=== PATIENT | male | born 1955 | race Caucasian/White ===

== ENCOUNTER 2020-02-23 20:48 | Emergency (ER) | payer OTHER ==
[~2020-02-23] VITALS: Ht 175.3 cm; Wt 99.8 kg
[2020-02-23 21:00] VITALS: BP 143/69
--- NOTE | 2020-02-23 21:00 | NUR ---
ARRIVAL PT ARRIVED AMBULATORY TO ER 6 WITH C/O FEVER AND COUGHING. PT STATES HAS "BEEN FEELING BAD", HAVE FEVER, COUGHING, AND HAVE HEADACHE. PT TESTED POSITIVE FOR COVID BEFORE . PT WAS TESTED AT PCP OFFICE.
--- NOTE | 2020-02-23 22:00 | DIREP ---
PROCEDURE:CHEST 2 VIEWS COMPARISON:[facility], CR, CHEST 2 VIEW, 10/23/2013, 08:10 AM. INDICATIONS:cough FINDINGS: LUNGS/PLEURA:Bilateral diffuse ground-glass infiltrates seen worrisome for viral pneumonia, such as Covid 19 pneumonia. Elevated right hemidiaphragm. No obvious CHF or effusions are seen, although portions of the vascularity obscured by the overlying infiltrates. VASCULATURE:Normal. Unremarkable pulmonary vasculature. CARDIAC:Normal. No cardiac silhouette abnormality or cardiomegaly. MEDIASTINUM:Normal. No visible mass or adenopathy. BONES:Normal. No fracture or visible bony lesion. OTHER:Negative. CONCLUSION:Diffuse bilateral ill-defined ground-glass infiltrates worrisome for Covid 19 pneumonia. Dictated by: Alexander Bernabe MD on 02/23/2020 at 09:58 PM
[2020-02-23 22:04] LABS: BASOPHIL % 0.4 % (0.0-0.2); EOSINOPHIL # 0.1 10^3/uL (0.0-0.2); EOSINOPHIL % 1.3 % (0.0-5.0); LYMPHOCYTES % 22.5 % (24.0-44.0); MEAN CORP HGB 32.1 pg (26-34); MONOCYTES # 0.1 10^3/uL (0.3-0.8); MONOCYTES % 2.6 % (5.0-12.0); NEUTROPHIL # 3.9 10^3/uL (1.8-7.7); NEUTROPHILS % 72.8 % (41.0-85.0); PLATELET COUNT 163 10^3/uL (150-400); RED CELL DISTRIBUTION WIDTH 12.5 % (11.5-14.5)
[2020-02-23 22:05] VITALS: BP 146/71
[2020-02-23 22:19] LABS: CALCIUM 8.7 mg/dL (8.4-10.5); CARBON DIOXIDE 22.3 mmol/L (20.0-32)
[2020-02-23 22:35] LABS: ABG PCO2 33.4 mmHg (35.0-45.0); ABG PH 7.449 (7.350-7.450); BE(B) -0.5 mmol/L (-2.0-2.0); HCO3act 22.6 mmol/L (22.0-26.0); pO2 58.4 mmHg (80.0-100.0)
[2020-02-23 22:47] VITALS: BP 152/75
[2020-02-23 23:14] VITALS: BP 148/70
[2020-02-23] MEDS ORDERED: DECADRON ONE (23:31)
[2020-02-23] MEDS ORDERED: DECADRON IV STA (23:33)
--- NOTE | 2020-02-23 23:33 | ER.PDOC ---
General Chief Complaint: Cough/Congestion Stated Complaint: FEVER,LOW O2 Time seen by MD: 23:26 Source: patient Exam Limitations: no limitations History of Present Illness Initial Comments Patient diagnosed with COVID-19 about 10 days ago comes in because of low Oxygen in the 80s at home. He continues to cough and sometimes with fever. Patient has completed taking two rounds of Z pack and a Rocephin shot given by his PCP. Severity: moderate Activities at Onset: rest Prior Episodes/Possible Cause: no prior episodes Associated Symptoms: cough Allergies: Coded Allergies: No Known Allergies (Unverified , 02/23/20) Past Medical History Medical History: high cholesterol, other Surgical History: no surgical history Social History Alcohol Use: none Drug Use: none Review of Systems Constitutional: no symptoms reported Respiratory: see HPI Cardiovascular: no symptoms reported Gastrointestinal: no symptoms reported Genitourinary: no symptoms reported Musculoskeletal: no symptoms reported Skin: no symptoms reported All Other Systems: Reviewed and Negative Physical Exam General Appearance: No Apparent Distress, WD/WN, Obese HEENT: PERRL/EOMI Neck: Non-Tender, Full Range of Motion, Supple, Normal Inspection Respiratory: chest non-tender, no respiratory distress, no accessory muscle use, rhonchi Cardiovascular: Normal Peripheral Pulses, Regular Rate, Rhythm, No Edema, No Gallop, No JVD, No Murmur Gastrointestinal: Normal Bowel Sounds, No Organomegaly, No Pulsatile Mass, Non Tender, Soft Extremities: Normal Range of Motion, Non-Tender, Normal Inspection, No Pedal Edema, No Calf Tenderness, Normal Capillary Refill 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, No Motor/Sensory Deficits, Alert, Normal Mood/Affect, Oriented x 3 Skin: Normal Color, Warm/Dry Lymphatic: No Adenopathy Results/Orders Results/Orders Orders - RONI BROWN MD Cbc With Auto Diff (02/23/20 21:10) Comprehensive Metabolic Panel (02/23/20 21:10) Blood Culture (02/23/20 21:10) Xr Chest 2v (02/23/20 21:10) Ferritin(Ml) (02/23/20 22:08) Procalcitonin (02/23/20 22:08) C-Reactive Protein (02/23/20 22:08) D-Dimer (02/23/20 22:08) Creatine Kinase (02/23/20 22:08) Creatine Kinase Mb (02/23/20 22:08) Troponin I (02/23/20 22:08) Probnp B-Type Muffler Tender (02/23/20 22:08) PT (02/23/20 22:08) Partial Thromboplastin Time. (02/23/20 22:08) Ekg-Routine (02/23/20 22:08) Arterial Blood Gas (02/23/20 22:08) Lactate Dehydrogenase (02/23/20 22:08) Vital Signs Date Time Temp Pulse Resp B/P (MAP) Pulse Ox O2 Delivery O2 Flow Rate FiO2 02/23/20 23:14 88 20 148/70 (96) 92 Room Air 02/23/20 22:47 85 20 152/75 (100) 92 Room Air 02/23/20 22:05 98.1 82 18 146/71 (96) 91 Room Air 02/23/20 21:00 98.1 85 18 93 02/23/20 21:00 98.1 85 18 02/23/20 21:00 98.1 85 18 143/69 (93) 93 Room Air Laboratory Tests Test 02/23/20 21:40 02/23/20 22:30 White Blood Count 5.3 10^3/uL (4.5-11.0) Red Blood Count 4.55 10^6/uL (4.50-5.90) Hemoglobin 14.6 g/dL (13.9-16.3) Hematocrit 42.4 % (37.0-53.0) Mean Corpuscular Volume 93.2 fL (78-100) Mean Corpuscular Hemoglobin 32.1 pg (26-34) Mean Corpuscular Hemoglobin Concent 34.4 g/dL (33-36.5) Red Cell Distribution Width 12.5 % (11.5-14.5) Platelet Count 163 10^3/uL (150-400) Mean Platelet Volume 9.9 fL (7.8-11.0) Neutrophils (%) (Auto) 72.8 % (41.0-85.0) Lymphocytes (%) (Auto) 22.5 % (24.0-44.0) L Monocytes (%) (Auto) 2.6 % (5.0-12.0) L Neutrophils # (Auto) 3.9 10^3/uL (1.8-7.7) Lymphocytes # (Auto) 1.20 10^3/uL1 (1.0-4.8) Monocytes # (Auto) 0.1 10^3/uL (0.3-0.8) L Absolute Immature Granulocyte (auto 0.02 10^3 u/L (0-2) Absolute Eosinophils (auto) 0.1 10^3/uL (0.0-0.2) Immature Granulocytes % 0.40 % (0.00-0.50) Eosinophils % 1.3 % (0.0-5.0) Basophils % 0.4 % (0.0-0.2) H Basophils # 0.0 10^3/uL (0.0-0.1) Prothrombin Time 10.0 SEC (9.3-11.3) Prothrombin Time INR (Non-Therap) 1.0 Activated Partial Thromboplast Time 29.5 SEC (24.67-30.72) D-Dimer 0.97 mg/L (0.19-0.49) *H Sodium Level 131 mmol/L (132-145) L Potassium Level 4.0 mmol/L (3.6-5.2) Chloride Level 97.0 mmol/L (96-109) Carbon Dioxide Level 22.3 mmol/L (20.0-32) Anion Gap 15.7 Blood Urea Nitrogen 13 mg/dL (7-18) Creatinine 1.77 mg/dL (0.59-1.40) H Estimated GFR () 47.4 (>/=60) Est GFR (CKD-EPI)(Non-Afr Cambodian) 39.2 (>/=60) BUN/Creatinine Ratio 7.0 Glucose Level 102 mg/dL (70-110) Calcium Level 8.7 mg/dL (8.4-10.5) Total Bilirubin 0.5 mg/dL (0.2-1.0) Aspartate Amino Transferase (AST) 34 U/L (0-35) Alanine Aminotransferase (ALT) 34 U/L (12-78) Alkaline Phosphatase 58 U/L (50-136) Total Protein 6.2 g/dL (6.4-8.2) L Albumin 3.1 g/dL (3.4-5.0) L Globulin 3.1 Albumin/Globulin Ratio 1.000 Blood Gas Sample Site RB Blood pH 7.449 (7.350-7.450) Blood Gas PCO2 33.4 mmHg (35.0-45.0) L Blood Gas PO2 58.4 mmHg (80.0-100.0) L Blood Gas HCO3 22.6 mmol/L (22.0-26.0) Blood Gas Base Excess -0.5 mmol/L (-2.0-2.0) Arterial Blood Oxygen Saturation 90.3 % (94.0-97.00) L Deoxyhemoglobin 9.6 % (0.0-5.0) H Carboxyhemoglobin 0.5 % (0.0-3.9) Methemoglobin 0.1 % (0.00-5.0) Total Hemoglobin 15.5 % (12.0-17.8) Total Oxygen Concentration 19.5 % (13.5-17.5) H Oxygen Delivery Method ROOM AIR FiO2 21 % (20-101) Total Carbon Dioxide 23.7 mmol/L (23-27) Progress Progress CXR: Diffuse bilateral ill-defined ground-glass infiltrates worrisome for Covid 19 pneumonia. I spoke with Dr. Dior on observing patient but he declined on basis that patient does not meet criteria since Oxygen is hanging at 91%. Discussed with patient and he is okay going home. EKG/XRAY/CT/US EKG: NSR, no ST T wave changes EKG Comments: HR 77, normal axis ER DEPART Departure Time of Disposition: 23:39 Disposition: 01 HOME, SELF-CARE Impression: Primary Impression: Pneumonia due to COVID-19 virus Condition: Stable Referrals: CARLIE BARRAZA (PCP) PRIMARY CARE PROVIDER Additional Instructions: Dexamethasone Mucinex DM OTC as directed Vit C, D and Zinc OTC as directed F/U with PCP in 2-3 days Return to ED if worsening or concerns. Duration or Time Spent with Pa: 60 min RONI BROWN MD Feb 23, 2020 23:33
--- NOTE | 2020-02-24 00:59 | PCM.EKG ---
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
== END 2020-02-23 23:55 | disposition home or self-care (01) ==
LOC: ER 20:48
DX: U07.1 COVID-19 (principal); J12.89 Other viral pneumonia; E78.00 Pure hypercholesterolemia, unspecified; R79.1 Abnormal coagulation profile
CPT/HCPCS: 36415; 71046; 80053; 82550; 82553; 82803; 83615; 83880; 84145; 84484; 85025; 85379; 85610; 85730; 86140; 87040 ×2; 93005; 96374; 99285; J1100

== ENCOUNTER → 2022-01-22 | Outpatient (CLI) | payer OTHER ==
--- NOTE | 2022-01-22 10:58 | DIREP ---
PROCEDURE:US ABDOMEN LIMITED COMPARISON:None. INDICATIONS:R10.11 RUQ PAIN TECHNIQUE:High resolution sonographic examination was performed of the abdomen. FINDINGS: LIVER:Increased echotexture. No focal lesion identified. BILIARY:Gallbladder sludge. No and shadowing stones, wall thickening, pericholecystic fluid or biliary duct dilatation, CBD 0.6 cm. PANCREAS:Nonvisualized due to bowel gas shadowing. RIGHT KIDNEY:Normal size and echotexture, 10.3 x 4.6 x 7.0 cm. No hydronephrosis. OTHER:Negative. No ascites is identified. CONCLUSION: 1. Hepatic steatosis. 2. No cholelithiasis, acute cholecystitis or biliary duct obstruction. Dictated by: Kaylin Dubon MD on 01/22/2022 at 10:53 AM
== END | disposition home or self-care (01) ==
LOC: RAD 09:09
PROVIDERS: ATTEND Family Medicine
DX: K76.0 Fatty (change of) liver, not elsewhere classified (principal); R10.11 Right upper quadrant pain
CPT/HCPCS: 76705; 93976

== ENCOUNTER 2022-01-24 22:10 | Emergency (ER) | payer OTHER ==
[~2022-01-24] VITALS: Ht 172.7 cm; Wt 95.3 kg
[2022-01-24 22:27] VITALS: BP 134/88
--- NOTE | 2022-01-24 22:42 | ER.PDOC ---
General Chief Complaint: Abdomen Pain Stated Complaint: GALLBLADDER ISSUES Time seen by MD: 22:38 Source: patient Exam Limitations: no limitations History of Present Illness Initial Comments Epigastric pain for the last few days. Patient is nauseated but no vomiting. Severity/Quality: moderate, burning Radiation: no radiation Associated Symptoms: other (nausea) Exacerbated by: nothing Relieved By: nothing Allergies: Coded Allergies: No Known Allergies (Unverified , 02/23/20) Vital Signs First Vital Signs Date Time Temp Pulse Resp B/P (MAP) Pulse Ox O2 Delivery O2 Flow Rate FiO2 01/24/22 22:27 98.1 72 16 98 Room Air* 0 21 01/25/22 00:14 110/69 (83) Last Vital Signs Date Time Temp Pulse Resp B/P (MAP) Pulse Ox O2 Delivery O2 Flow Rate FiO2 01/25/22 00:14 98.1 78 16 110/69 (83) 96 Room Air* 0 21 Past Medical History Medical History: no pertinent history Surgical History: no surgical history Family History Significant Family History: no pertinent family hx Social History Smoking: non-smoker Alcohol Use: none Drug Use: none Constitutional: no symptoms reported EENTM: no symptoms reported Respiratory: no symptoms reported Cardiovascular: no symptoms reported Gastrointestinal: see HPI All Other Systems: Reviewed and Negative Physical Exam General Appearance: No Apparent Distress, WD/WN HEENT: PERRL/EOMI, Normal ENT Inspection, TMs Normal, Pharynx Normal Neck: Non-Tender, Full Range of Motion, Supple, Normal Inspection Respiratory: chest non-tender, lungs clear, normal breath sounds, no respiratory distress, no accessory muscle use Cardiovascular: Normal Peripheral Pulses, Regular Rate, Rhythm, No Edema, No Gallop, No JVD, No Murmur Gastrointestinal: Normal Bowel Sounds, No Organomegaly, No Pulsatile Mass, Tenderness (epigastric) Back: Normal Inspection, No CVA Tenderness, No Vertebral Tenderness Extremities: Normal Range of Motion, Non-Tender, Normal Inspection, No Pedal Edema, No Calf Tenderness, Normal Capillary Refill, Pelvis Stable 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, No Motor/Sensory Deficits, Alert, Normal Mood/Affect, Oriented x 3 Skin: Normal Color, Warm/Dry Lymphatic: No Adenopathy Results/Orders Results/Orders Orders - RONI BROWN MD Cbc With Auto Diff (01/24/22 22:33) Comprehensive Metabolic Panel (01/24/22 22:33) Lipase (01/24/22 22:33) Helicobacter Pylori (01/24/22 22:33) Ct Abd/Pel With Iv Contrast (01/24/22 22:33) Urinalysis (01/24/22 22:33) Ondansetron Hcl/Pf (Zofran) (01/24/22 22:33) Mag Hydrox/Aluminum Hyd/Simeth (Mylanta) (01/24/22 22:33) Lidocaine Hcl (Lidocaine Hcl Viscous) (01/24/22 22:33) Pantoprazole Sodium (Protonix Iv) (01/24/22 22:33) Ekg-Routine (01/24/22 22:33) Troponin I High Sensitivity (01/24/22 22:33) Pantoprazole Sodium (Protonix Iv) (01/24/22 22:52) Ondansetron Hcl/Pf (Zofran) (01/24/22 22:52) Lidocaine Hcl (Lidocaine Hcl Viscous) (01/24/22 22:52) Mag Hydrox/Aluminum Hyd/Simeth (Mylanta) (01/24/22 22:52) Vital Signs Date Time Temp Pulse Resp B/P (MAP) Pulse Ox O2 Delivery O2 Flow Rate FiO2 01/25/22 00:14 98.1 78 16 110/69 (83) 96 Room Air* 0 21 01/24/22 22:27 98.1 72 16 98 01/24/22 22:27 98.1 72 16 98 Room Air* 0 21 Administered Medications Medications (Trade) Dose Ordered Sig/Jenelle Route PRN Reason Start Time Stop Time Status Last Admin Dose Admin Lidocaine HCl (Lidocaine HCl Viscous) 10 ml STAT STAT MM 01/24/22 22:33 01/24/22 22:39 DC 01/24/22 22:56 10 ML Ondansetron HCl (Zofran) 4 mg STAT STAT IV 01/24/22 22:33 01/24/22 22:39 DC 01/24/22 22:56 4 MG Pantoprazole Sodium (Protonix Iv) 40 mg STAT STAT IV 01/24/22 22:33 01/24/22 22:39 DC 01/24/22 22:55 40 MG Laboratory Tests Test 01/24/22 22:53 White Blood Count 7.8 10^3/uL (4.5-11.0) Red Blood Count 4.37 10^6/uL (4.50-5.90) L Hemoglobin 13.7 g/dL (13.9-16.3) L Hematocrit 40.6 % (37.0-53.0) Mean Corpuscular Volume 92.9 fL (78-100) Mean Corpuscular Hemoglobin 31.4 pg (26-34) Mean Corpuscular Hemoglobin Concent 33.7 g/dL (33-36.5) Red Cell Distribution Width 13.1 % (11.5-14.5) Platelet Count 193 10^3/uL (150-400) Mean Platelet Volume 10.0 fL (7.8-11.0) Neutrophils (%) (Auto) 45.6 % (41.0-85.0) Lymphocytes (%) (Auto) 44.5 % (24.0-44.0) H Monocytes (%) (Auto) 7.1 % (5.0-12.0) Neutrophils # (Auto) 3.6 10^3/uL (1.8-7.7) Lymphocytes # (Auto) 3.49 10^3/uL1 (1.0-4.8) Monocytes # (Auto) 0.6 10^3/uL (0.3-0.8) Absolute Immature Granulocyte (auto 0.04 10^3 u/L (0-2) Absolute Eosinophils (auto) 0.2 10^3/uL (0.0-0.2) Immature Granulocytes % 0.50 % (0.00-0.50) Eosinophils % 2.4 % (0.0-5.0) Basophils % 0.4 % (0.0-0.2) H Basophils # 0.0 10^3/uL (0.0-0.1) Urine Collection Type RANDOM Urine Color YELLOW Urine Appearance CLEAR Urine Bilirubin NEGATIVE (NEGATIVE) Urine Ketones NEGATIVE (NEGATIVE) Urine Specific [place] 1.015 (1.005-1.030) Urine pH 5.5 (4.5-8.0) Urine Protein NEGATIVE (NEGATIVE) Urine Urobilinogen 0.2 E.U./dL (0.2) Urine Nitrate NEGATIVE (NEGATIVE) Urine Leukocyte Esterase NEGATIVE (NEGATIVE) Urine Glucose (Auto)(UA) NEGATIVE (NEGATIVE) Urine Blood NEGATIVE (NEGATIVE) Sodium Level 142 mmol/L (132-145) # Potassium Level 3.5 mmol/L (3.6-5.2) L Chloride Level 106.0 mmol/L (96-109) Carbon Dioxide Level 25.7 mmol/L (20.0-32) Anion Gap 13.8 Blood Urea Nitrogen 15 mg/dL (7-18) Creatinine 1.09 mg/dL (0.59-1.40) Estimated GFR () 82.4 (>/=60) Est GFR (CKD-EPI)(Non-Afr Botswanan) 68.1 (>/=60) BUN/Creatinine Ratio 13.0 Glucose Level 96 mg/dL (70-110) Calcium Level 8.6 mg/dL (8.4-10.5) Total Bilirubin 0.3 mg/dL (0.2-1.0) Aspartate Amino Transferase (AST) 32 U/L (0-35) Alanine Aminotransferase (ALT) 109 U/L (12-78) H Alkaline Phosphatase 83 U/L (50-136) Troponin I High Sensitivity 9 ng/L (0-75) Total Protein 6.3 g/dL (6.4-8.2) L Albumin 4.0 g/dL (3.4-5.0) Globulin 2.3 Albumin/Globulin Ratio 1.739 Lipase 77 U/L (114-286) L Helicobacter pylori Screen NEGATIVE (NEGATIVE) Progress Progress CBC and chemistry are unremarkable. Lipase is normal. H. pylori is negative. Urinalysis is negative for UTI. Patient had a gallbladder sonogram which was done 2 days ago and showed hepatic steatosis, no cholelithiasis, acute cholecystitis or biliary duct obstruction. CT abdomen/pelvis show Moderate left hydronephrosis and hydroureter of most of the left ureter with abrupt tapering in the distal left ureter suggesting scarring in the distal left ureter. No ureteral stone seen at this time. Recently passed stone or anatomical variant is also on the differential. 2. Markedly distended irregular bladder. 3. Indeterminate lesion in the anterior right kidney possibly a proteinaceous cyst. Follow-up MRI could be performed on a nonacute basis. 4. Anterolisthesis of L4 on L5 and bilateral pars defects at L4. 5. Other findings as above. Reviewed results of the CT with him and he understands that he will need to follow-up with urologist. Patient received Protonix, GI cocktail and Zofran. He feels better. EKG/XRAY/CT/US EKG: NSR EKG Comments: HR 77, normal P axis ER DEPART Departure Time of Disposition: 00:48 Disposition: 01 HOME / SELF CARE / HOMELESS Impression: Primary Impression: Nonspecific abdominal pain Additional Impression: Gastritis and duodenitis Condition: Improved Referrals: CARLIE BARRAZA (PCP) PRIMARY CARE PROVIDER Additional Instructions: Protonix Follow-up with your PCP in 2 to 3 days Follow-up with urology for abnormalities on CT in 2-3 days Return to ED if worsening pain or concerns Duration or Time Spent with Pa: 60 min Problem Qualifiers RONI BROWN MD Jan 24, 2022 22:42
[2022-01-24] MEDS ORDERED: LIDOCAINE HCL VISCOUS ONE (22:52)
[2022-01-24] MEDS ORDERED: MYLANTA ONE (22:52)
[2022-01-24] MEDS ORDERED: ZOFRAN ONE (22:52)
[2022-01-24] MEDS ORDERED: PROTONIX IV IV ONE (22:52)
[2022-01-24] MEDS: PROTONIX IV IV STA (22:55)
[2022-01-24] MEDS: LIDOCAINE HCL VISCOUS MM STA (22:56)
[2022-01-24] MEDS: MYLANTA PO STA (22:56)
[2022-01-24] MEDS: ZOFRAN IV STA (22:56)
[2022-01-24 23:03] LABS: BILIRUBIN,URINE NEGATIVE (NEGATIVE); UROBILINOGEN,URINE 0.2 E.U./dL (0.2)
[2022-01-24 23:14] LABS: BASOPHIL % 0.4 % (0.0-0.2); EOSINOPHIL # 0.2 10^3/uL (0.0-0.2); EOSINOPHIL % 2.4 % (0.0-5.0); LYMPHOCYTES # 3.49 10^3/uL1 (1.0-4.8); LYMPHOCYTES % 44.5 % (24.0-44.0); MEAN CORP HGB 31.4 pg (26-34); MONOCYTES # 0.6 10^3/uL (0.3-0.8); MONOCYTES % 7.1 % (5.0-12.0); NEUTROPHIL # 3.6 10^3/uL (1.8-7.7); NEUTROPHILS % 45.6 % (41.0-85.0); PLATELET COUNT 193 10^3/uL (150-400); RED CELL DISTRIBUTION WIDTH 13.1 % (11.5-14.5)
[2022-01-24 23:23] LABS: CARBON DIOXIDE 25.7 mmol/L (20.0-32)
[2022-01-25 00:14] VITALS: BP 110/69
--- NOTE | 2022-01-25 00:37 | DIREP ---
PROCEDURE:CT ABDOMEN/PELVIS W/ CONTRAST COMPARISON:None. INDICATIONS:Epigastric pain TECHNIQUE:Axial images were created through the abdomen and pelvis with non-ionic intravenous contrast material. No oral contrast was administered. Sagittal and coronal reconstructions were performed from source images. FINDINGS: LUNG BASES:Normal. No visible pulmonary or pleural disease. LIVER:Normal. No significant liver lesions are identified. BILIARY:Normal. No visible dilatation or calcification. PANCREAS:Normal. No lesion, fluid collection, ductal dilatation, or atrophy. SPLEEN:Normal. No enlargement or focal lesion. ADRENALS:Normal. No mass or enlargement. URINARY TRACT:Indeterminate anterior right renal lesion measuring 1.9 cm. Left renal cyst measuring 4.0 cm. Moderate left hydronephrosis and left hydroureter. Tortuous left ureter. Left ureter tapers abruptly distally just before the bladder. No left ureteral stone is seen. The bladder is markedly distended and irregular. AORTA/VASCULAR:Atherosclerotic disease RETROPERITONEUM:Normal. No mass or adenopathy. BOWEL/MESENTERY:Normal appendix. No bowel thickening or obstruction. ABDOMINAL WALL:Normal. No mass or hernia. PELVIC ORGANS:Markedly distended irregular bladder. Prostate is not enlarged. Central prostate calcifications. BONES:Anterolisthesis of L 4 on L5 measuring 5 mm. Bilateral pars defects at L4. Degenerative changes. OTHER:Negative. CONCLUSION: 1. Moderate left hydronephrosis and hydroureter of most of the left ureter with abrupt tapering in the distal left ureter suggesting scarring in the distal left ureter. No ureteral stone seen at this time. Recently passed stone or anatomical variant is also on the differential. 2. Markedly distended irregular bladder. 3. Indeterminate lesion in the anterior right kidney possibly a proteinaceous cyst. Follow-up MRI could be performed on a nonacute basis. 4. Anterolisthesis of L4 on L5 and bilateral pars defects at L4. 5. Other findings as above. Dictated by: Harmeet Charles MD on 01/25/2022 at 00:28 AM
--- NOTE | 2022-01-25 01:48 | PCM.EKG ---
[facility] Test Date: 2022-01-24 Test Time: 23:24:21 Pat Name: GURMEET STONE Department: [id number] Room: Gender: M [employer] Tier: SB : 1955 Requested By: RONI BROWN Order Number: [id number] Reading MD: Roni BROWN Measurements Intervals [place] Rate: 77 P: 21 [place]: 177 QRS: 0 QRSD: 91 T: 11 QT: 428 QTc: 485 Interpretive Statements Sinus rhythm Low voltage, precordial leads Borderline prolonged QT interval Compared to ECG 02/23/2020 22:20:29 Low QRS voltage now present Electronically Signed On 01-25-2022 18:59:05 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
== END 2022-01-25 00:52 | disposition home or self-care (01) ==
LOC: ER 22:10
DX: R10.13 Epigastric pain (principal); K29.70 Gastritis, unspecified, without bleeding; K29.80 Duodenitis without bleeding
CPT/HCPCS: 99285; 74177; 96374; 96375; 81003; 80053; 85025; 86677; 36415; 84484; 83690; 93005; J3490; J2405; C9113; Q9965